=== PATIENT | male | born 1985 | race African-American/Black ===

== ENCOUNTER 2023-11-29 15:47 | Emergency (ER) | payer MEDICAID, SELFPAY ==
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
[2023-11-29 16:21] VITALS: BP 111/74; PULSE 93; RESP 16; TEMP 36.6; O2SAT 99; BMI 21.6
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
[2023-11-29] MEDS: Acetaminophen 325 MG TABLET 975 MG PO (19:56)
--- NOTE | 2023-11-29 19:56 | PC.NURSE ---
PT medicated as per AUG. PT noted that he was claustrophobic and wanted to be able to wait outside and recevie report from outside. TW spoke with ALYSE, Selin hong PT s request. She noted that she is able to look out for results of pt xray while pt waits in waiting room but she would not be able to submit any prescriptions if needed. TW informed pt who decided to stay in the room. TW offered and provided pt with warm blanket and to turn lights down to help him in feeling more comfortable while waiting
[2023-11-29 20:17] VITALS: BP 114/78; PULSE 70; RESP 16; TEMP 37.3; O2SAT 98
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
[2023-11-29] MEDS: Ibuprofen 600 MG TABLET PO (20:59)
[2023-11-29] MEDS: diazePAM 2 MG TABLET PO (20:59)
--- NOTE | 2023-11-29 21:35 | PC.NURSE ---
TW requested varnishing unit operator to reach out to radiology to encourage to read report as soon as possible.
--- NOTE | 2023-11-29 22:50 | PC.NURSE ---
PT foudn to be walking around ED. TW attempted to redirect pt to his room but pt refused noting that it was a detention cell . Offered PT more food/drinks, warm blanket pt declined. PT also noted that he wanted to file a formal complaint against the radiologist due to the delay. Requested neonatal intensive care unit nurse to call radiology to request report to be read- 2nd attempt. TW also contacted greenhouse technician to ask that she speak with PT to address his concerns.
[2023-11-29 23:24] VITALS: BP 114/78; PULSE 78; RESP 16; TEMP 37.3; O2SAT 98
== END 2023-11-29 22:55 | disposition home or self-care (01) ==
PROVIDERS: Emergency Provider Emergency Medicine
DX: S13.4XXA Sprain of ligaments of cervical spine, initial encounter (principal); V43.62XA Car passenger injured in collision with other type car in traffic accident, initial encounter; M62.838 Other muscle spasm; M54.2 Cervicalgia; M54.6 Pain in thoracic spine; Y93.89 Activity, other specified; Y92.481 Parking lot as the place of occurrence of the external cause; Y99.9 Unspecified external cause status
CPT/HCPCS: 72040; 72072; 73030; 99283; 99284